=== PATIENT | female | born 1995 | race Caucasian/White ===

== ENCOUNTER 2017-12-12 11:17 | Emergency (ER) | payer OTHER ==
[~2017-12-12] VITALS: Ht 162.6 cm; Wt 65.8 kg
[2017-12-12] MEDS ORDERED: CYCL10 PO (11:52)
== END 2017-12-12 12:01 | disposition home or self-care (01) ==
LOC: ER 11:17 → EDSEX 11:17 → ER 12:01
DX: M79.661 Pain in right lower leg (principal); F32.9 Major depressive disorder, single episode, unspecified; F17.200 Nicotine dependence, unspecified, uncomplicated; V47.5XXA Car driver injured in collision with fixed or stationary object in traffic accident, initial encounter
CPT/HCPCS: 99284